=== PATIENT | female | born 1965 | race Caucasian/White ===

== ENCOUNTER → 2017-05-11 | Outpatient (CLI) | payer BC ==
[~2017-05-11] MED LIST: ACET500C OR; LIDO5DIS EXT; NABU500T OR; TYLENOL #3 OR
--- NOTE | 2017-05-11 16:37 | REPMRS ---
Patient History The patient states she had a clinical breast exam in 04/2017. Patient is postmenopausal and is nulliparous. Digital Woman Screen Mammo: May 11, 2017 - Exam #: [id number] Bilateral CC and MLO view(s) were taken. Technologist: Mecca Howard, Technologist Prior study comparison: February 03, 2016, digital woman screen mammo performed at [facility]. February 22, 2015, digital woman screen mammo performed at [facility]. FINDINGS: The breast tissue is heterogeneously dense. This may lower the sensitivity of mammography. There has been no change in the appearance of the mammogram from the prior studies. There is a moderate amount of residual fibroglandular tissue which is fairly symmetric. There is no interval development of dominant mass, areas of architectural distortion, or clustered microcalcification typical of malignancy. ASSESSMENT: BI-RADS/ACR category 1 mammogram. Negative. Recommendation Routine screening mammogram in 1 year (for women over age 40). This mammogram was interpreted with the aid of an FDA-approved computer-aided dectection system. Electronically Signed By: Andreas Donald MD 05/11/17 [id number]
== END ==
LOC: M WHC 15:42
PROVIDERS: ATTEND Nurse Practitioner Family
DX: Z12.31 Encounter for screening mammogram for malignant neoplasm of breast (principal)

== ENCOUNTER → 2017-05-11 | Outpatient (REF) | payer BC | LOC: M SFHCWAGY 16:07 | PROVIDERS: ATTEND Nurse Practitioner Family | DX: Z12.4 Encounter for screening for malignant neoplasm of cervix (principal); R87.610 Atypical squamous cells of undetermined significance on cytologic smear of cervix (ASC-US) ==

== ENCOUNTER → 2018-06-21 | Outpatient (REF) | payer BC | LOC: M SFHCWAGY 15:19 | DX: Z12.4 Encounter for screening for malignant neoplasm of cervix (principal) ==

== ENCOUNTER → 2018-06-21 | Outpatient (CLI) | payer BC | LOC: M WHC 14:50 | DX: Z12.31 Encounter for screening mammogram for malignant neoplasm of breast (principal) ==

== ENCOUNTER → 2019-06-26 | Outpatient (CLI) | payer BC ==
--- NOTE | 2019-06-26 15:29 | REPMRS ---
Patient History The patient states she had a clinical breast exam in 06/2019. No Hormone Replacement Therapy 3D TOMOSYNTHESIS WAS PERFORMED. [facility] lifetime [facility] for breast cancer is 10.1%. Digital Woman Screen Mammo: June 26, 2019 - Exam #: [id number] Bilateral CC and MLO view(s) were taken. Technologist: Lorna Burnham, Technologist Prior study comparison: June 21, 2018, bilateral digital woman screen mammo performed at [facility]. May 11, 2017, digital woman screen mammo performed at [facility]. FINDINGS: The breast tissue is heterogeneously dense. This may lower the sensitivity of mammography. There has been no change in the appearance of the mammogram from the prior studies. There is a moderate amount of residual fibroglandular tissue which is fairly symmetric. There is no interval development of dominant mass, areas of architectural distortion, or clustered microcalcification typical of malignancy. Assessment: BI-RADS/ACR category 1 mammogram. Negative Mammogram. Recommendation Routine screening mammogram in 1 year (for women over age 40). This mammogram was interpreted with the aid of an FDA-approved computer-aided dectection system. Electronically Signed By: Andreas Donald MD 06/26/19 [id number]
== END ==
LOC: M WHC 14:36
PROVIDERS: ATTEND Nurse Practitioner Family
DX: Z12.31 Encounter for screening mammogram for malignant neoplasm of breast (principal)

== ENCOUNTER → 2019-06-26 | Outpatient (REF) | payer BC ==
[2019-07-01 14:10] LABS: HPV LOW VOL RFLX Negative (Negative)
== END ==
LOC: M SFHCWAGY 15:01
PROVIDERS: ATTEND Nurse Practitioner Family
DX: Z12.4 Encounter for screening for malignant neoplasm of cervix (principal)
CPT/HCPCS: 87624; G0123

== ENCOUNTER → 2020-07-03 | Outpatient (CLI) | payer BC ==
--- NOTE | 2020-07-18 17:44 | REPMRS ---
Patient History The patient states she had a clinical breast exam in 06/2020. Patient is postmenopausal and is nulliparous. No Hormone Replacement Therapy Digital Woman Screen Mammo: July 03, 2020 - Exam #: [id number] Bilateral CC and MLO view(s) were taken. Technologist: Yarely Petty, Technologist Prior study comparison: June 26, 2019, bilateral digital woman screen mammo performed at [facility]. June 21, 2018, bilateral digital woman screen mammo performed at [facility]. May 11, 2017, digital woman screen mammo performed at [facility]. FINDINGS: There are scattered fibroglandular densities. The Volpara volumetric breast density category is:B. There has been no change in the appearance of the mammogram from the prior studies. There is a mild amount of scattered fibroglandular density which is fairly symmetric. There is no interval development of dominant mass, architectural distortion, or grouped microcalcification suggestive of malignancy. 3-D tomosynthesis shows no additional findings. Assessment: BI-RADS/ACR category 1 mammogram. Negative Mammogram. Recommendation Routine screening mammogram of both breasts in 1 year (for women over age 40). This patient's Lifetime Breast Cancer Risk is estimated at 9.9 %. This mammogram was interpreted with the aid of an FDA-approved computer-aided dectection system. Electronically Signed By: Alverto Hamm MD 07/18/20 [id number]
== END ==
LOC: M WHC 17:14
PROVIDERS: ATTEND Nurse Practitioner Family
DX: Z12.31 Encounter for screening mammogram for malignant neoplasm of breast (principal); Z78.0 Asymptomatic menopausal state

== ENCOUNTER → 2020-07-03 | Outpatient (REF) | payer BC | LOC: M SFHCPLAZ 11:39 | PROVIDERS: ATTEND Nurse Practitioner Family | DX: Z12.4 Encounter for screening for malignant neoplasm of cervix (principal) ==

== ENCOUNTER → 2021-07-09 | Outpatient (CLI) | payer BC ==
--- NOTE | 2021-07-09 15:51 | REP ---
INDICATION: MARISA SCR MAMMO Z12.31. COMPARISON: Multiple TECHNIQUE: Digital screening mammography was carried out bilaterally in the CC and MLO projections and compared to the prior exams. Both 2D and 3D modalities were utilized. By history, the patient has no complaints of a palpable breast abnormality or other significant breast complaints. FINDINGS: The breasts are unchanged in size and shape. Once again, dense heterogenous somewhat nodular fibroglandular elements are seen bilaterally in a stable appearing pattern but to such a degree that the sensitivity of the mammogram in detecting cancer is decreased. There are no elsy soft tissue densities or spiculated masses. There is no internal architectural distortion. Stable benign calcifications are again seen. There are no suspicious calcifications. There is no skin thickening or nipple retraction. The Volpara volumetric breast density pattern is C. IMPRESSION: BIRADS/ACR category 2 benign findings. There is no evidence of malignant alteration of the breasts. Consider bilateral whole breast screening ultrasonography due to the patient's breast density score. This patient's Tyrer-Cuzick lifetime breast cancer risk assessment score is 9.6%. This mammogram was interpreted with the aid of an FDA-approved computer-aided detection system. The patient states she had a clinical breast exam in undisclosed June 2021. The patient letter being requested is M1. RECOMMENDATION: Repeat screening mammography recommended 1 year (for women over 40). <Electronically signed by Benny Mejia > 07/09/21 [id number]
== END ==
LOC: M WHC 13:55
PROVIDERS: ATTEND Advanced Practice Midwife
DX: Z12.31 Encounter for screening mammogram for malignant neoplasm of breast (principal)

== ENCOUNTER → 2022-07-22 | Outpatient (REF) | payer BC | LOC: M PLALAB 16:12 | PROVIDERS: ATTEND Nurse Practitioner Family | DX: Z12.4 Encounter for screening for malignant neoplasm of cervix (principal) | CPT/HCPCS: 87624; G0123 ==

== ENCOUNTER → 2022-07-22 | Outpatient (CLI) | payer BC | LOC: M WHC 14:11 | PROVIDERS: ATTEND Nurse Practitioner Family | DX: Z12.31 Encounter for screening mammogram for malignant neoplasm of breast (principal) ==

== ENCOUNTER → 2023-07-28 | Outpatient (REF) | payer BC | LOC: M SFHCWAGY 17:36 | PROVIDERS: ATTEND Nurse Practitioner Family | DX: Z12.4 Encounter for screening for malignant neoplasm of cervix (principal) | CPT/HCPCS: 87624; G0123 ==

== ENCOUNTER → 2023-07-28 | Outpatient (CLI) | payer BC | LOC: M WHC 14:30 | PROVIDERS: ATTEND Nurse Practitioner Family | DX: Z12.31 Encounter for screening mammogram for malignant neoplasm of breast (principal) ==

== ENCOUNTER → 2024-02-02 | Outpatient (REF) | payer BC | LOC: M LAB REF 16:05 | PROVIDERS: ATTEND Podiatrist | DX: M67.472 Ganglion, left ankle and foot (principal) ==

== ENCOUNTER → 2024-08-02 | Outpatient (CLI) | payer OTHER ==
[~2024-08-02] MED LIST changes: +ALBU8.5H; +ECOT81TA5 PO; +FLUT12HF2; +OMEG10002 PO; +SPIR100T3 PO; +TRAZ-252 PO
== END ==
LOC: M WHC 14:04
PROVIDERS: ATTEND Nurse Practitioner Family
DX: Z12.31 Encounter for screening mammogram for malignant neoplasm of breast (principal); R92.323 Mammographic fibroglandular density, bilateral breasts

== ENCOUNTER → 2024-08-02 | Outpatient (REF) | payer OTHER ==
[2024-08-05 13:46] LABS: HPV APTIMA Not Detected (Not Detected)
== END ==
LOC: M SFHCWAGY 10:52
PROVIDERS: ATTEND Nurse Practitioner Family
DX: Z12.4 Encounter for screening for malignant neoplasm of cervix (principal)

== ENCOUNTER 2024-08-04 06:02 | Day surgery (SDC) | payer OTHER ==
[~2024-08-04] VITALS: Ht 162.6 cm; Wt 55.7 kg
[2024-08-04] MEDS ORDERED: LR 1,000 ML IV SCH ×2 (06:20→08:55)
[2024-08-04] MEDS ORDERED: MIDAZOLAM INJ 2MG/2ML VIAL As Ordered ONE (07:03)
[2024-08-04] MEDS ORDERED: propofoL 500 MG/50 ML VIAL As Ordered ONE (07:03)
[2024-08-04] MEDS ORDERED: LIDOCAINE 2% 100MG/5ML SDV (FOR ANES.) As Ordered ONE (07:08)
[2024-08-04] MEDS: LIDOCAINE 2% MDV 20ML VIAL As Ordered ONE (07:41)
[2024-08-04] MEDS: ceFAZolin SOD 2 GM in IV 1 EA IV ONE (07:41)
[2024-08-04] MEDS: GENTAMICIN SULF 80MG/2ML VIAL As Ordered ONE (08:01)
[2024-08-04] MEDS ORDERED: KETOROLAC 60MG 2ML VIAL As Ordered ONE (08:30)
[2024-08-04] MEDS ORDERED: HYDROMORPHONE HCL 0.5 MG/ 0.5 ML SYRINGE IV PRN (08:55)
[2024-08-04] MEDS ORDERED: oxyCODONE 5MG TAB PO PRN (08:55)
[2024-08-04] MEDS ORDERED: fentaNYL 100 MCG/2 ML INJECTION IV PRN (08:55)
[2024-08-04] MEDS ORDERED: ONDANSETRON 4MG 2ML VIAL IV PRN (08:55)
[2024-08-04 09:58] VITALS: BP 135/75; TEMP 98.6; O2SAT 97
== END 2024-08-04 10:19 | disposition home or self-care (01) ==
LOC: M SDC 06:02
PROVIDERS: ATTEND Podiatrist
DX: M67.472 Ganglion, left ankle and foot (principal); M89.8X7 Other specified disorders of bone, ankle and foot; J44.9 Chronic obstructive pulmonary disease, unspecified; Z79.51 Long term (current) use of inhaled steroids; Z79.52 Long term (current) use of systemic steroids; Z79.82 Long term (current) use of aspirin; Z79.899 Other long term (current) drug therapy; F17.218 Nicotine dependence, cigarettes, with other nicotine-induced disorders
CPT/HCPCS: 28090; 28122; 73630; 88300; J0665; J0690; J1100; J1580; J1885; J2250

== ENCOUNTER → 2025-08-08 | Outpatient (CLI) | payer OTHER | LOC: M WHC 13:25 | PROVIDERS: ATTEND Advanced Practice Midwife | DX: Z12.31 Encounter for screening mammogram for malignant neoplasm of breast (principal) ==

== ENCOUNTER → 2025-11-07 | Outpatient (REF) | LOC: M PLAIMG 11:28 | PROVIDERS: ATTEND Internal Medicine | DX: R52 Pain, unspecified (principal) ==